=== PATIENT | female | born 1980 | race American Indian/Alaskan Native ===

== ENCOUNTER 2018-05-10 15:41 | Inpatient (IN) | payer SELFPAY ==
--- NOTE | 2018-05-10 16:07 | Emergency Department Report ---
HPI - General Time Seen by Provider: 05/10/18 15:52 - HPI HPI: 37-year-old female presents to the emergency Department via EMS as a code stroke. Apparently the patient was standing in line at a pharmacy when she fell down and allegedly in her head and had some seizure-like activity. This was the reason EMS was called but that EMS says that the patient tensed up in front of them and then started having a facial droop, slurred speech and some left-sided weakness. Patient does have a seizure history but has not been noncompliant with her medications. She does not have any primary care physician or neurologist and she moved here from [place]. I spoke to the patient again after her CT scan of the head was completed and the patient tells me that she has a history of conversion disorder. ED Past Medical Hx - Past Medical History Hx Seizures: Yes (no meds) - Social History Smoking Status: Never Smoker Substance Use Type: None - Medications Home Medications: Home Medications Medication Instructions Recorded Confirmed Last Taken Type No Known Home Medications [No 05/10/18 05/10/18 Unknown History Reported Home Medications] ED Review of Systems ROS: Stated complaint: NEURO ISSUES Other details as noted in HPI Comment: All other systems reviewed and negative Constitutional: denies: chills, fever Eyes: denies: eye pain, vision change ENT: denies: ear pain, throat pain Respiratory: denies: cough, shortness of breath Cardiovascular: denies: chest pain, palpitations Gastrointestinal: denies: abdominal pain, vomiting Genitourinary: denies: dysuria, discharge Musculoskeletal: denies: back pain, arthralgia Skin: denies: rash, lesions Neurological: headache, weakness Physical Exam - Physical Exam Vital Signs: Vital Signs 05/10/18 15:57 Temperature 98.3 F Pulse Rate 88 Respiratory 18 Rate Blood Pressure 113/70 O2 Sat by Pulse 99 Oximetry Physical Exam: GENERAL: The patient is well-developed well-nourished. HEENT: Normocephalic. Atraumatic. Patient has moist mucous membranes. EYES: Extraocular motions are intact. Pupils are equal and reactive to light bilaterally. NECK: Supple. Trachea is midline. CHEST/LUNGS: Clear to auscultation. There is no respiratory distress noted. HEART/CARDIOVASCULAR: Regular. There is no tachycardia. There is no obvious murmur. ABDOMEN: Abdomen is soft, nontender. Patient has normal bowel sounds. There is no abdominal distention. SKIN: Skin is warm and dry. NEURO: The patient is awake, alert. The patient has some facial asymmetry. She has some dysarthria. No sensory deficits. Patient has left-sided upper and lower extremity weakness in her extremities with the gurney. There is a mild right upper extremity and right lower extremity drift. MUSCULOSKELETAL: There is no tenderness or deformity. There is no evidence of acute injury. ED Course Vital Signs 05/10/18 15:57 Temperature 98.3 F Pulse Rate 88 Respiratory 18 Rate Blood Pressure 113/70 O2 Sat by Pulse 99 Oximetry - Reevaluation(s) Reevaluation #1: 05/10/18 19:16 Patient has been reevaluated and most of her strokelike symptoms have resolved. She just complains of a headache. - Consultations Consultation #1: the patient was seen in the emergency department by the telemedicine neurologist, Dr. Smith. Dr. Smith saw the patient via night monitor and did her evaluation of the patient in the room. She agrees that this does not appear obvious or definitive as a stroke. It could be some type of postictal event such as a Mando's paralysis, or it could be the conversion disorder, which the patient says that she has. For these reasons, Dr. Simth does not feel that the patient requires TPA. On top of that, the patient says that she would not accept TPA anyways. 05/10/18 19:11 ED Medical Decision Making - Lab Data Result diagrams: 05/10/18 16:04 05/10/18 16:04 - Radiology Data Radiology results: report reviewed EXAM: CT HEAD WO CONTRAST HISTORY: Code Stroke. TECHNIQUE: CT of the Head without IV contrast. PRIORS: None currently available. FINDINGS: There is no evidence for acute ischemia. There is no hemorrhage. There is no midline shift. There is no hydrocephalus. There is no mass. Age appropriate estevez-white matter attenuation is noted. There is no calvarial fracture. The temporal bones demonstrate aerated mastoid air cells. The middle ears appear unremarkable. Paranasal sinuses are unremarkable. Globes are intact. IMPRESSION: No acute intracranial findings. Transcribed By: TYM Dictated By: ARTHUR SINGER MD Electronically Authenticated By: ARTHUR SINGER MD Signed Date/Time: 05/10/18 1389 - Medical Decision Making Patient presents to the emergency department as a code stroke. On examination she does display some left-sided weakness, dysarthria and facial asymmetry. However the patient does appear to be forcing this facial asymmetry. There are some inconsistencies and occasionally the speech will come clear and then slurred again. Doing the NIH stroke scale, the patient comes out as a 9. However in discussing the stroke workup with the patient, she says that she has a history of conversion disorder and says that this is how it always has been for her. At first she did not want any workup to be done but then she eventually agreed to the CT scan, labs and EKG. CT scan of the head did not show any bleed, shift, mass, ischemia, or any other acute processes. EKG did not show any signs of ST elevation [place] or dysrhythmia. Labs have been unremarkable and do not show any etiology of her symptoms. The patient was seen by the telemedicine neurologist who agrees that the patient did not definitively have a stroke and that it may be the conversion disorder or some type of reaction to seizures. Patient was loaded with some Keppra. She was given some Ativan and Toradol. Neurology recommended admission for further evaluation. She was accepted for admission by the hospitalist service. - Differential Diagnosis CVA, TIA, Seizures, Conversion Disorder Critical Care Time: No Critical care attestation.: If time is entered above; I have spent that time in minutes in the direct care of this critically ill patient, excluding procedure time. ED Disposition Clinical Impression: Stroke-like symptoms, History of seizure disorder Disposition: OP ADMIT IP TO THIS HOSP Is pt being admited?: Yes Condition: Fair Referrals: MARÍA APPIAH DO [Primary Care Provider] - 3-5 Days Time of Disposition: 18:40 - Assessment Assessment Interval: Baseline - Level of Consciousness 1a. Level of Consciousness: alert/keenly responsive - LOC Questions 1b. LOC Questions: answers both correctly - LOC Command 1c. LOC Commands: performs tasks correctly - Best Gaze 2. Best Gaze: normal - Visual 3. Visual: no visual loss - Facial Palsy 4. Facial Palsy: partial paralysis - Motor Arm 5b. Motor Arm Right: drift 5a. Motor Arm Left: some gravity effort - Motor Leg 6b. Motor Leg Right: drift 6a. Motor Leg Left: some gravity effort - Limb Ataxia 7. Limb Ataxia: absent - Sensory 8. Sensory: normal - Best Language 9. Best Language: no aphasia - Dysarthria 10. Dysarthria: mild/moderate dysarthria - Extinction and Inattention 11. Extinction/Inattention: no abnormality - Scoring Total Score: 9 Stroke Severity: Moderate Stroke
[2018-05-10 16:14] LABS: Basophils # (Auto) 0.1 K/mm3 (0.0-0.1); Basophils % (Auto) 1.1 % (0.0-1.8); Eosinophils # (Auto) 0.1 K/mm3 (0.0-0.4); Eosinophils % (Auto) 1.2 % (0.0-4.3); Hematocrit 33.2 % (30.3-42.9); Hemoglobin 10.6 gm/dl (10.1-14.3); Lymphocytes # (Auto) 1.4 K/mm3 (1.2-5.4); Lymphocytes % (Auto) 19.3 % (13.4-35.0); Mean Corpuscular HGB Conc 32 % (30-34); Mean Corpuscular Volume 73 fl (79-97); Monocytes # (Auto) 0.7 K/mm3 (0.0-0.8); Monocytes % (Auto) 9.1 % (0.0-7.3); Platelet Count 290 K/mm3 (140-440); Red Blood Count 4.55 M/mm3 (3.65-5.03); Red Cell Distribution Width 16.9 % (13.2-15.2)
--- NOTE | 2018-05-10 16:18 | Cat Scan Report ---
FINAL REPORT EXAM: CT HEAD WO CONTRAST HISTORY: Code Stroke. TECHNIQUE: CT of the Head without IV contrast. PRIORS: None currently available. FINDINGS: There is no evidence for acute ischemia. There is no hemorrhage. There is no midline shift. There is no hydrocephalus. There is no mass. Age appropriate estevez-white matter attenuation is noted. There is no calvarial fracture. The temporal bones demonstrate aerated mastoid air cells. The middle ears appear unremarkable. Paranasal sinuses are unremarkable. Globes are intact. IMPRESSION: No acute intracranial findings.
[2018-05-10 16:23] LABS: INR 0.91 (0.87-1.13)
[2018-05-10 16:24] LABS: Partial Thromboplastin Time 21.7 Sec. (24.2-36.6)
[2018-05-10 16:30] LABS: BUN/Creatinine Ratio 14; Blood Urea Nitrogen 10 mg/dL (7-17); Calcium 9.2 mg/dL (8.4-10.2); Hemolysis Index 47
[2018-05-10] MEDS ORDERED: ATIVAN IV ONE (17:01)
[2018-05-10] MEDS ORDERED: ATIVAN ONE (17:05)
[2018-05-10] MEDS ORDERED: TORADOL IV ONE ×2 (17:12→22:22)
[2018-05-10] MEDS ORDERED: BENADRYL IV ONE (17:12)
[2018-05-10] MEDS ORDERED: KEPPRA 1,000 MG/NS 0.75% 100ML 1,000 MG/100 ML BAG IV ONE (19:19)
[2018-05-10] MEDS ORDERED: NACL 0.9% 1000 ML 1,000 ML ONE (21:54)
[2018-05-10] MEDS ORDERED: MILK OF MAGNESIA PO PRN (22:36)
[2018-05-10] MEDS ORDERED: SODIUM CHLORIDE FLUSH SYRINGE 10 ML IV PRN (22:36)
[2018-05-10] MEDS ORDERED: TYLENOL PO PRN (22:36)
[2018-05-10] MEDS ORDERED: DULCOLAX PR PRN (22:36)
[2018-05-10] MEDS ORDERED: ZOFRAN IV PRN (22:36)
[2018-05-10] MEDS ORDERED: ATIVAN IV PRN (22:41)
--- NOTE | 2018-05-10 22:56 | History and Physical Report ---
History of Present Illness Date of examination: 05/10/18 Date of admission: 05/10/18 19:00 History of present illness: 37-year-old woman with a history of seizure, conversion disorder, anxiety, migraine, seem emergency room for seizure-like activity. The patient states she was at [facility] picking up her medication, she states he does not recall what happened, she was told she had 2 seizures. She was brought to the emergency room for further evaluation, she was noted to have a facial droop. The patient states she has a migraine that started 3 days ago, diffuse, unable to describe it, the intensity 7/10, not radiation, associated photophobia, relieved with Toradol in the emergency room. When she got to the floor, she is noted to have worsening slurred speech and facial droop, CODE MET was called. Her speech fluctuated between normal and sort of slurred, this was definitely markedly dramatized by the patient, also her facial droop Review of systems Constitutional: no weight loss, chills, fever Ears, eyes, nose, mouth and throat: no nasal congestion, no nasal discharge, no sinus pressure, no vision change, no red eye. Neck: No neck pain or rigidity. Cardiovascular: no palpitations, chest pain Respiratory: no cough, shortness of breath Gastrointestinal: no hematochezia, abdominal pain Genitourinary : no frequency , no hematuria Musculoskeletal: no joint swelling or muscle ache Integumentary: no rash, no pruritis Neurological: no parathesias, no focal weakness Endocrine: no cold or heat intolerance, no polyuria or polydipsia Hematologic/Lymphatic: no easy bruising, no easy bleeding, no gland swelling Allergic/Immunologic: no urticaria, no angioedema. PAST MEDICAL HISTORY: seizure, conversion disorder, anxiety, migraine PAST SURGICAL HISTORY: None SOCIAL HISTORY: Denies alcohol, drugs, tobacco FAMILY HISTORY: Hypertension Medications and Allergies Allergies Allergy/AdvReac Type Severity Reaction Status Date / Time metoclopramide [From Reglan] Allergy Unknown Verified 05/10/18 15:43 Home Medications Medication Instructions Recorded Confirmed Last Taken Type No Known Home Medications [No 05/10/18 05/10/18 Unknown History Reported Home Medications] Active Meds: Active Medications Acetaminophen (Tylenol) 650 mg PO Q4H PRN PRN Reason: Pain, Mild (1-3) Aspirin (Aspirin) 325 mg PO QDAY SIMONA Bisacodyl (Dulcolax) 10 mg SD QDAY PRN PRN Reason: Constipation Sodium Chloride (Nacl 0.9% 1000 Ml) 1,000 mls @ 150 mls/hr IV DIRECT SIMONA Sodium Chloride (Nacl 0.9% 1000 Ml) 1,000 mls @ 150 mls/hr IV DIRECT SIMONA Lorazepam (Ativan) 1 mg IV Q4H PRN PRN Reason: Seizures Magnesium Hydroxide (Milk Of Magnesia) 30 ml PO Q4H PRN PRN Reason: Constipation Ondansetron HCl (Zofran) 4 mg IV Q4H PRN PRN Reason: Nausea And Vomiting Pravastatin Sodium (Pravachol) 20 mg PO QHS SIMONA Sodium Chloride (Sodium Chloride Flush Syringe 10 Ml) 10 ml IV PRN PRN PRN Reason: LINE FLUSH Exam - Physical Exam Narrative exam: General Apperance: The patient lying in bed, breathing comfortable HEENT: Normocephalic, atraumatic. Pupils equally round and reactive to light, EOMI, no sclericterus or JVD or thyromegaly or nodule. , no carotid bruit, mucous membranes moist, no exudate or erythema Heart: S1-S2, regular is rhythm Lungs: Clear to auscultation bilaterally, breathing comfortable Abdomen: Positive bowel sounds, soft, nontender, nondistended, no organomegaly Extremities: No edema cyanosis clubbing Skin: no rash, nodule, warm and dry Neuro: facial droop otherwise cranial nerves intact, slurred speech is fluent, motor/sensory intact - Constitutional Vitals: Temp Pulse Resp BP Pulse Ox 98.3 F 102 H 16 138/89 98 05/10/18 15:57 05/10/18 21:02 05/10/18 21:02 05/10/18 21:02 05/10/18 21:02 Results - Labs CBC & Chem 7: 05/10/18 16:04 05/10/18 16:04 Labs: Abnormal lab results 05/10/18 05/10/18 05/10/18 Range/Units 16:04 16:04 16:04 MCV 73 L (79-97) fl MCH 23 L (28-32) pg RDW 16.9 H (13.2-15.2) % [place] % (Auto) 9.1 H (0.0-7.3) % APTT 21.7 L (24.2-36.6) Sec. Thrombin Time (15.1-19.6) Sec. Sodium 135 L (137-145) mmol/L 05/10/18 Range/Units 16:04 MCV (79-97) fl MCH (28-32) pg RDW (13.2-15.2) % [place] % (Auto) (0.0-7.3) % APTT (24.2-36.6) Sec. Thrombin Time 14.6 L (15.1-19.6) Sec. Sodium (137-145) mmol/L - Imaging and Cardiology CT Scan - head: report reviewed Assessment and Plan Assessment Complicated migraine versus acute on chronic conversion disorder anxiety Plan Admit to medicine Start Toradol for pain, consult neurology, MRI of the head, do neuro checks Start aspirin, statin, DVT prophylaxis
[2018-05-10] MEDS ORDERED: NACL 0.9% 1000 ML 1,000 ML IV SCH ×2 (23:00)
[2018-05-10] MEDS ORDERED: NACL 0.9% 1000 ML IV SCH (23:00)
[2018-05-11] MEDS: TORADOL IV SCH ×4 (01:00→17:45)
[2018-05-11 06:38] LABS: Chol/HDL Ratio 4.02 %
[2018-05-11] MEDS ORDERED: BABY ASPIRIN PO SCH (10:00)
[2018-05-11] MEDS ORDERED: ASPIRIN PO SCH (10:00)
--- NOTE | 2018-05-11 10:49 | Progress Note ---
Assessment and Plan Assessment and plan: Complicated migraine versus acute on chronic conversion disorder Continued Toradol for pain, consult neurology, MRI of the head pending, neuro checks Started aspirin, statin, DVT prophylaxis Anxiety disorder. Consider psych evaluation. History Interval history: No new issues overnight. Hospitalist Physical - Constitutional Vitals: Temp Pulse Resp BP Pulse Ox 98.3 F 74 18 95/50 100 05/11/18 08:00 05/11/18 08:00 05/11/18 08:00 05/11/18 08:00 05/11/18 04:18 General appearance: Present: no acute distress, well-nourished - EENT Eyes: Present: PERRL, EOM intact ENT: hearing intact, clear oral mucosa, dentition normal - Neck Neck: Present: supple, normal ROM - Respiratory Respiratory effort: normal Respiratory: bilateral: CTA - Cardiovascular Rhythm: regular Heart Sounds: Present: S1 & S2. Absent: gallop, rub - Extremities Extremities: no ischemia, No edema, Full ROM - Abdominal General gastrointestinal: soft, non-tender, non-distended, normal bowel sounds - Integumentary Integumentary: Present: clear, warm, dry - Neurologic Neurologic: CNII-XII intact, moves all extremities Results - Labs CBC & Chem 7: 05/10/18 16:04 05/10/18 16:04 Labs: Laboratory Last Values WBC 7.2 K/mm3 (4.5-11.0) 05/10/18 16:04 RBC 4.55 M/mm3 (3.65-5.03) 05/10/18 16:04 Hgb 10.6 gm/dl (10.1-14.3) 05/10/18 16:04 Hct 33.2 % (30.3-42.9) 05/10/18 16:04 MCV 73 fl (79-97) L 05/10/18 16:04 MCH 23 pg (28-32) L 05/10/18 16:04 MCHC 32 % (30-34) 05/10/18 16:04 RDW 16.9 % (13.2-15.2) H 05/10/18 16:04 Plt Count 290 K/mm3 (140-440) 05/10/18 16:04 Lymph % (Auto) 19.3 % (13.4-35.0) 05/10/18 16:04 [place] % (Auto) 9.1 % (0.0-7.3) H 05/10/18 16:04 Eos % (Auto) 1.2 % (0.0-4.3) 05/10/18 16:04 Baso % (Auto) 1.1 % (0.0-1.8) 05/10/18 16:04 Lymph # 1.4 K/mm3 (1.2-5.4) 05/10/18 16:04 [place] # 0.7 K/mm3 (0.0-0.8) 05/10/18 16:04 Eos # 0.1 K/mm3 (0.0-0.4) 05/10/18 16:04 Baso # 0.1 K/mm3 (0.0-0.1) 05/10/18 16:04 Seg Neutrophils % 69.3 % (40.0-70.0) 05/10/18 16:04 Seg Neutrophils # 5.0 K/mm3 (1.8-7.7) 05/10/18 16:04 PT 12.7 Sec. (12.2-14.9) 05/10/18 16:04 INR 0.91 (0.87-1.13) 05/10/18 16:04 APTT 21.7 Sec. (24.2-36.6) L 05/10/18 16:04 Thrombin Time 14.6 Sec. (15.1-19.6) L 05/10/18 16:04 Sodium 135 mmol/L (137-145) L 05/10/18 16:04 Potassium 3.9 mmol/L (3.6-5.0) 05/10/18 16:04 Chloride 101.6 mmol/L (98-107) 05/10/18 16:04 Carbon Dioxide 22 mmol/L (22-30) 05/10/18 16:04 Anion Gap 15 mmol/L 05/10/18 16:04 BUN 10 mg/dL (7-17) 05/10/18 16:04 Creatinine 0.7 mg/dL (0.7-1.2) 05/10/18 16:04 Estimated GFR > 60 ml/min 05/10/18 16:04 BUN/Creatinine Ratio 14 % 05/10/18 16:04 Glucose 86 mg/dL (65-100) 05/10/18 16:04 POC Glucose 90 (70-105) 05/10/18 21:52 Calcium 9.2 mg/dL (8.4-10.2) 05/10/18 16:04 Troponin T < 0.010 ng/mL (0.00-0.029) 05/10/18 16:04 Triglycerides 167 mg/dL (2-149) H 05/11/18 06:03 Cholesterol 141 mg/dL (50-199) 05/11/18 06:03 LDL Cholesterol Direct 98 mg/dL (50-130) 05/11/18 06:03 HDL Cholesterol 35 mg/dL (40-59) L 05/11/18 06:03 Cholesterol/HDL Ratio 4.02 % 05/11/18 06:03
[2018-05-11 12:21] VITALS: BP 89/50
--- NOTE | 2018-05-11 14:55 | Magnetic Resonance Report ---
MRI OF THE BRAIN WITHOUT CONTRAST: HISTORY: Stroke PROCEDURE: Multiplanar, multisequence MR imaging of the brain without IV contrast was performed. FINDINGS: Compared to the CT dated 05/10/18. The brain parenchyma signal intensity and its zamora white interface are within normal limits on all sequences. No evidence for acute ischemia, hemorrhage or mass. No chronic infarct or extra-axial fluid collection. The midline structures are central. The basal cisterns are patent. Normal ventricular size. The orbital cavities and sella turcica demonstrate no abnormality. The visualized paranasal sinuses and mastoid air cells are well aerated. IMPRESSION: Unremarkable non-enhanced MRI of the brain.
--- NOTE | 2018-05-11 18:16 | Progress Note ---
Subjective Date of service: 05/11/18 Interval history: the CT and MRI of the brain are normal suspect seizures a/w anemia suspect BALDEV based on low MCV patient recovered and can be discharged home at this point neuro exam is normal will follow up in the office patient up and ambulating w/o problem Objective - Vital Sign Vital Signs - 12hr 05/11/18 05/11/18 05/11/18 08:00 10:00 12:00 Temperature 98.3 F 98.3 F Pulse Rate 74 72 Respiratory 18 20 Rate Blood Pressure Blood Pressure 95/50 [Left] O2 Sat by Pulse 99 Oximetry 05/11/18 12:17 Temperature Pulse Rate 83 Respiratory Rate Blood Pressure 89/50 Blood Pressure [Left] O2 Sat by Pulse 98 Oximetry - Laboratory Findings CBC and BMP: 05/10/18 16:04 05/10/18 16:04 Abnormal Lab Findings: Abnormal Labs 05/10/18 05/10/18 05/10/18 16:04 16:04 16:04 MCV 73 L MCH 23 L RDW 16.9 H [place] % (Auto) 9.1 H APTT 21.7 L Thrombin Time Sodium 135 L Triglycerides HDL Cholesterol 05/10/18 05/11/18 16:04 06:03 MCV MCH RDW [place] % (Auto) APTT Thrombin Time 14.6 L Sodium Triglycerides 167 H HDL Cholesterol 35 L
[2018-05-11] MEDS ORDERED: PRAVACHOL PO SCH (22:00)
--- NOTE | 2018-05-18 13:56 | Discharge Summary ---
Providers - Providers Date of Admission: 05/10/18 19:00 Date of discharge: 05/11/18 Attending physician: MIREYA ARRIOLA 05/10/18 Consult to Physician [CONS] Routine Comment: Consulting Provider: APRIL YOUNG Physician Instructions: Reason For Exam: facial droop 05/10/18 22:37 Occupational Therapy Evaluate and Treat [CONS] Routine Comment: Reason For Exam: Neuro deficits Physical Therapy Evaluation and Treat [CONS] Routine Comment: Reason For Exam: Neuro deficits Primary care physician: MARÍA APPIAH Hospitalization Reason for admission: sz Condition: Fair Hospital course: 37-year-old woman with a history of seizure, conversion disorder, anxiety and migraine was seen in emergency room for seizure-like activity. The patient stated she was at [facility] picking up her medication, when she had 2 seizures. The patient does not remember the events as they transpired. She was brought to the emergency room for further evaluation, she was noted to have a facial droop. The patient stated she has a migraine that started 3 days ago CARD LACER JACQUARD that was diffuse and 7/10 intensity, non radiating, associated photophobia, relieved with Toradol in the emergency room. When she got to the floor, she was noted to have worsening slurred speech and facial droop, CODE MET was called. Her speech fluctuated between normal and sort of slurred, this was definitely markedly dramatized by the patient, also her facial droop. The CT and MRI of the brain were normal. Neurology saw the patient in consultation of suspected seizures associated with anemia. The patient recovered and neurology felt patient could discharge home. Dedicated discharge time 32 minutes. Disposition: DC- TO HOME OR SELFCARE Time spent for discharge: 32 - Discharge Diagnoses (1) Seizure Status: Acute (2) History of seizure disorder Status: Acute Core Measure Documentation - Palliative Care Palliative Care/ Comfort Measures: Not Applicable - Core Measures Any of the following diagnoses?: none Exam - Constitutional Vitals: Temp Pulse Resp BP Pulse Ox 98.3 F 83 20 89/50 98 05/11/18 12:00 05/11/18 12:17 05/11/18 10:00 05/11/18 12:17 05/11/18 12:17 General appearance: Present: no acute distress, well-nourished - EENT Eyes: Present: PERRL ENT: hearing intact, clear oral mucosa - Neck Neck: Present: supple, normal ROM - Respiratory Respiratory effort: normal Respiratory: bilateral: CTA - Cardiovascular Heart Sounds: Present: S1 & S2. Absent: rub, click - Extremities Extremities: pulses symmetrical, No edema Peripheral Pulses: within normal limits - Abdominal General gastrointestinal: Present: soft, non-tender, non-distended, normal bowel sounds Female genitourinary: Present: normal - Integumentary Integumentary: Present: clear, warm, dry - Musculoskeletal Musculoskeletal: gait normal, strength equal bilaterally - Psychiatric Psychiatric: appropriate mood/affect, intact judgment & insight - Neurologic Neurologic: CNII-XII intact, moves all extremities Plan Activity: advance as tolerated Weight Bearing Status: Weight Bear as Tolerated Diet: regular Follow up with: MARÍA APPIAH DO [Primary Care Provider] - 3-5 Days Forms: AMA Form
== END 2018-05-11 20:00 | disposition home or self-care (01) | DRG 101 ==
LOC: ED 15:41 → 4A 19:00
PROVIDERS: ADMIT Internal Medicine; ATTEND Hospitalist
DX: G40.909 Epilepsy, unspecified, not intractable, without status epilepticus (principal); F41.9 Anxiety disorder, unspecified; G43.909 Migraine, unspecified, not intractable, without status migrainosus; F44.4 Conversion disorder with motor symptom or deficit; R47.81 Slurred speech; Z82.49 Family history of ischemic heart disease and other diseases of the circulatory system
CPT/HCPCS: 36415; 70450; 70551; 80048; 80061; 82962; 84484; 85025; 85610; 85670; 85730; 93005; 93010; 96365; 96375; G0378; J1200; J1885; J1953; J2060; J7030

== ENCOUNTER 2018-09-14 12:28 | Emergency (ER) | payer SELFPAY ==
[2018-09-14] MEDS ORDERED: NACL 0.9% 1000 ML 1,000 ML IV ONE (13:01)
[2018-09-14] MEDS ORDERED: DECADRON IV ONE (13:01)
[2018-09-14] MEDS ORDERED: BENADRYL IV ONE (13:01)
[2018-09-14] MEDS ORDERED: TORADOL IV ONE (13:01)
[2018-09-14 13:06] LABS: Hemoglobin 11.6 gm/dl (10.1-14.3); Mean Corpuscular HGB Conc 33 % (30-34); Mean Corpuscular Volume 79 fl (79-97); Platelet Count 238 K/mm3 (140-440); Red Blood Count 4.45 M/mm3 (3.65-5.03)
[2018-09-14 13:13] LABS: Red Cell Distribution Width 22.2 % (13.2-15.2)
[2018-09-14 13:26] LABS: BUN/Creatinine Ratio 11; Blood Urea Nitrogen 10 mg/dL (7-17); Calcium 8.8 mg/dL (8.4-10.2); Hemolysis Index 37
[2018-09-14] MEDS ORDERED: COMPAZINE IV ONE (14:01)
--- NOTE | 2018-09-14 15:20 | Emergency Department Report ---
ED Seizure HPI - General Chief Complaint: Seizure Stated Complaint: SEIZURE/FACIAL DROOP Time Seen by Provider: 09/14/18 13:01 Source: patient, EMS Mode of arrival: Stretcher Limitations: No Limitations - History of Present Illness Initial Comments: 37-year-old female with history of nonepileptic seizures, complex migraines presents to the ED following a seizure at a pharmacy. Patient had a compulsive seizure there, EMS was called. EMS reports patient for absence seizures while with them. Patient has history of complex migraines are usually triggered by menstruation. The migraines been treated for her to have seizures. Patient initially had a headache with facial droop, facial droop now resolved. Patient states her menstrual period began yesterday, so that the headache. Patient states she sees a neurologist, reports a cocktail consisting of Toradol, Benadryl, Compazine, Decadron normally works for her migraine headaches MD Complaint: seizure -: This afternoon Description of Episode: tonic-clonic movement, post-event confusion Witnessed:: Yes Trauma: No Seizure History: known seizure disorder Possible Precipitating Event: other (migraine HARVEY) Associated Symptoms: denies: chest pain, fever/chills, shortness of breath Treatments Prior to Arrival: none - Related Data Allergies Allergy/AdvReac Type Severity Reaction Status Date / Time metoclopramide [From Reglan] Allergy Unknown Verified 09/14/18 12:37 ED Review of Systems ROS: Stated complaint: SEIZURE/FACIAL DROOP Other details as noted in HPI Comment: All other systems reviewed and negative Constitutional: denies: chills, fever Respiratory: denies: shortness of breath Cardiovascular: denies: chest pain Neurological: headache ED Past Medical Hx - Past Medical History Previous Medical History?: Yes Hx Headaches / Migraines: Yes (complex migraines w/ hemiplegic symptoms) Hx Seizures: Yes (partial and tonic/clonic sz w/ hemiplegia) - Surgical History Past Surgical History?: No - Social History Smoking Status: Never Smoker Substance Use Type: None ED Physical Exam - General Limitations: No Limitations General appearance: alert, in no apparent distress - Head Head exam: Present: atraumatic, normocephalic - Eye Eye exam: Present: normal appearance, PERRL, EOMI - ENT ENT exam: Present: mucous membranes moist - Neck Neck exam: Present: normal inspection, full ROM. Absent: tenderness, meningismus - Respiratory Respiratory exam: Present: normal lung sounds bilaterally. Absent: respiratory distress - Cardiovascular Cardiovascular Exam: Present: regular rate, normal rhythm - GI/Abdominal GI/Abdominal exam: Present: soft. Absent: distended, tenderness - Extremities Exam Extremities exam: Present: normal inspection - Neurological Exam Neurological exam: Present: alert, oriented X3, CN II-XII intact. Absent: motor sensory deficit - Psychiatric Psychiatric exam: Present: normal affect, normal mood - Skin Skin exam: Present: warm, dry, intact, normal color ED Course Vital Signs 09/14/18 09/14/18 09/14/18 12:43 12:45 12:46 Temperature 98.8 F Pulse Rate 86 84 87 Respiratory 13 23 13 Rate Blood Pressure 115/75 Blood Pressure 116/79 [Left] O2 Sat by Pulse 100 99 Oximetry 09/14/18 09/14/18 09/14/18 13:00 13:16 13:31 Temperature Pulse Rate 80 84 Respiratory 20 21 Rate Blood Pressure 116/69 116/69 116/69 Blood Pressure [Left] O2 Sat by Pulse 100 Oximetry 09/14/18 09/14/18 09/14/18 13:45 14:00 14:14 Temperature Pulse Rate 86 99 H Respiratory 19 20 20 Rate Blood Pressure 116/69 139/90 Blood Pressure [Left] O2 Sat by Pulse 100 Oximetry 09/14/18 09/14/18 09/14/18 14:15 14:30 14:45 Temperature Pulse Rate 91 H 87 86 Respiratory 19 16 16 Rate Blood Pressure 134/82 126/82 129/80 Blood Pressure [Left] O2 Sat by Pulse 100 100 Oximetry 09/14/18 09/14/18 09/14/18 15:00 15:15 15:47 Temperature Pulse Rate 85 87 Respiratory 16 15 20 Rate Blood Pressure 118/77 118/79 Blood Pressure [Left] O2 Sat by Pulse 100 99 Oximetry 09/14/18 15:52 Temperature 98.4 F Pulse Rate Respiratory Rate Blood Pressure Blood Pressure [Left] O2 Sat by Pulse Oximetry ED Medical Decision Making - Lab Data Result diagrams: 09/14/18 12:55 09/14/18 12:55 - Medical Decision Making - hx of chronic complex migraines and seizures - no neuro deficits during ED stay - labs normal - pt given IV fluids, toradol, decadron, compazine, and benadryl - HARVEY improved - pt advised to f/u with her neurologist - Differential Diagnosis complex migraine, seizures Critical care attestation.: If time is entered above; I have spent that time in minutes in the direct care of this critically ill patient, excluding procedure time. ED Disposition Clinical Impression: Seizure, Migraine headache Disposition: TO HOME OR SELFCARE Is pt being admited?: No Condition: Stable Instructions: Migraine Headache (ED), Recurrent Seizures Adult (ED) Referrals: PRIMARY CARE, [Primary Care Provider] - 3-5 Days Time of Disposition: 15:20
[2018-09-14 15:30] VITALS: BP 118/79
== END 2018-09-14 16:00 | disposition home or self-care (01) ==
LOC: ED 12:28 → MERGE 12:28 → ED 16:00
DX: R56.9 Unspecified convulsions (principal); G43.909 Migraine, unspecified, not intractable, without status migrainosus; Z88.8 Allergy status to other drugs, medicaments and biological substances
CPT/HCPCS: 36415; 80048; 82962; 85027; 96374; 96375; 99284; J0780; J1100; J1200; J1885; J7030

== ENCOUNTER 2018-09-18 11:52 | Emergency (ER) | payer SELFPAY ==
[2018-09-18] MEDS ORDERED: IMITREX SUB-Q ONE (12:48)
[2018-09-18] MEDS ORDERED: NACL 0.9% 500 ML 500 ML IV ONE (12:48)
[2018-09-18] MEDS ORDERED: ZOFRAN IV ONE (12:48)
[2018-09-18] MEDS ORDERED: BENADRYL IV ONE (12:48)
[2018-09-18] MEDS ORDERED: DECADRON IV ONE (12:48)
[2018-09-18] MEDS ORDERED: MORPHINE IV ONE (12:48)
--- NOTE | 2018-09-18 13:06 | Emergency Department Report ---
ED Headache HPI - General Chief Complaint: Seizure Stated Complaint: SEIZURES Time Seen by Provider: 09/18/18 12:45 Source: patient Exam Limitations: no limitations - History of Present Illness Initial Comments: Ms. Finnegan is a 37 yo female with hx of hemiplegic migraine, anxiety, seizure, conversion disorder who presents with 5 seizure like episodes. EMS was contacted. She was at the [facility] today for evaluation for anxiety. She has had recurrent migraine headache for the past several months. She is followed by neurologist in [place]. She feels that this headache has been exacerbated by menstrual cycle. Her main concern is headache at this time. She is currently taking Keppra, Imitrex, Buspar, Lorazepam. Recently admitted earlier this year for evaluation of seizure and facial droop. Quality: mild Recent Head Trauma: frequent headaches, chronic headaches Modifying Factors: improves with: exposure to light, other (menstruation) Associated Symptoms: seizures Allergies/Adverse Reactions: Allergies metoclopramide [From Reglan] Allergy (Verified 05/10/18 15:43) Unknown Home Medications: Ambulatory Orders No Known Home Medications [No Reported Home Medications] 05/10/18 ED Review of Systems ROS: Stated complaint: SEIZURES Other details as noted in HPI Comment: All other systems reviewed and negative Constitutional: denies: fever, malaise Respiratory: denies: cough Cardiovascular: denies: chest pain Neurological: headache ED Past Medical Hx - Past Medical History Previous Medical History?: Yes Hx Headaches / Migraines: Yes Hx Seizures: Yes (started new medication) - Social History Smoking Status: Never Smoker Substance Use Type: None - Medications Home Medications: Home Medications Medication Instructions Recorded Confirmed Last Taken Type No Known Home Medications [No 05/10/18 05/10/18 Unknown History Reported Home Medications] ED Physical Exam - General Limitations: Other General appearance: alert, in no apparent distress - Head Head exam: Present: atraumatic, normocephalic - Eye Eye exam: Present: normal appearance - ENT ENT exam: Present: mucous membranes moist - Neck Neck exam: Present: normal inspection, full ROM - Respiratory Respiratory exam: Present: normal lung sounds bilaterally. Absent: respiratory distress, wheezes, rales, rhonchi - Cardiovascular Cardiovascular Exam: Present: regular rate, normal rhythm, normal heart sounds. Absent: systolic murmur, diastolic murmur, rubs, gallop - GI/Abdominal GI/Abdominal exam: Present: soft, normal bowel sounds. Absent: distended, tenderness, guarding, rebound - Extremities Exam Extremities exam: Present: normal inspection - Back Exam Back exam: Present: normal inspection - Neurological Exam Neurological exam: Present: alert, oriented X3 - Psychiatric Psychiatric exam: Present: normal affect, normal mood - Skin Skin exam: Present: warm, dry, intact, normal color. Absent: rash ED Course Vital Signs 09/18/18 09/18/18 09/18/18 12:09 13:30 14:39 Temperature 98.5 F Pulse Rate 100 H 94 H Respiratory 18 21 Rate Blood Pressure 127/88 124/74 Blood Pressure 116/81 [Left] O2 Sat by Pulse 100 100 Oximetry ED Medical Decision Making - Medical Decision Making Migraine headache, seizure, numbness. Ms. Finnegan presents with typical migraine headache. She has a history of 20+ years of headache. Known history of seizure disorder. Followed by her neurologist in [place]. She received IV medication for analgesia. She also received IV fluids. Just after discharge, Ms. Finnegan exhibited seizure activity. Nurse administered ativan. No postictal phase. Patient immediately called her neurologist after the incident. I suspect nonepileptic seizure. Dc'd home Critical care attestation.: If time is entered above; I have spent that time in minutes in the direct care of this critically ill patient, excluding procedure time. ED Disposition Clinical Impression: Seizure, Migraine Disposition: DC-01 TO HOME OR SELFCARE Is pt being admited?: No Does the pt Need Aspirin: No Condition: Stable Instructions: Migraine Headache (ED), Epilepsy (ED)
[2018-09-18] MEDS ORDERED: ATIVAN IV ONE (14:40)
[2018-09-18] MEDS ORDERED: ATIVAN ONE (14:40)
[2018-09-18 17:47] VITALS: BP 125/87
== END 2018-09-18 17:51 | disposition home or self-care (01) ==
LOC: ED 11:52
DX: G40.909 Epilepsy, unspecified, not intractable, without status epilepticus (principal); G43.909 Migraine, unspecified, not intractable, without status migrainosus; Z88.8 Allergy status to other drugs, medicaments and biological substances
CPT/HCPCS: 93005; 93010; 96372; 96374; 96375; 99284; J1100; J1200; J2060; J2270; J2405; J7040; J3030

== ENCOUNTER 2019-05-30 13:02 | Emergency (ER) | payer SELFPAY ==
[2019-05-30] MEDS ORDERED: ACETAMINOPHEN 500 MG TAB PO ONE (14:12)
--- NOTE | 2019-05-30 14:20 | Emergency Department Report ---
ED Seizure HPI - General Chief Complaint: Seizure Stated Complaint: CONVULSIONS Time Seen by Provider: 05/30/19 14:02 Source: EMS Mode of arrival: Stretcher Limitations: No Limitations - History of Present Illness Initial Comments: Patient 38 years old female with history of an anxiety attack and possible nonepileptic seizure. Patient brought to the emergency room from her primary care physician office. Patient stated that she ran out of her BuSpar and Paxil and she went for a refill. Patient stated that while she was in the office she started having seizures. Patient stated that she got Ativan nasal spray and it helped abort the seizure. Patient was seen here 3 times before for the same thing. Patient also stated that she had migraine and now she is having an episode of migraine. MD Complaint: possible seizure Witnessed:: Yes Seizure History: known seizure disorder - Related Data Home Medications Medication Instructions Recorded Confirmed Last Taken No Known Home Medications [No 05/10/18 05/10/18 Unknown Reported Home Medications] Allergies Allergy/AdvReac Type Severity Reaction Status Date / Time metoclopramide [From Reglan] Allergy Unknown Verified 10/26/18 08:17 ED Review of Systems ROS: Stated complaint: CONVULSIONS Other details as noted in HPI Comment: All other systems reviewed and negative Constitutional: denies: chills, fever Respiratory: denies: cough, shortness of breath, SOB with exertion Cardiovascular: denies: chest pain, palpitations Gastrointestinal: denies: abdominal pain, nausea, vomiting Neurological: headache. denies: weakness, numbness, paresthesias, confusion, abnormal gait ED Past Medical Hx - Past Medical History Previous Medical History?: Yes Hx Headaches / Migraines: Yes Hx Seizures: Yes (started new medication) - Surgical History Past Surgical History?: No - Social History Smoking Status: Never Smoker Substance Use Type: None - Medications Home Medications: Home Medications Medication Instructions Recorded Confirmed Last Taken Type No Known Home Medications [No 05/10/18 05/10/18 Unknown History Reported Home Medications] ED Physical Exam - General Limitations: No Limitations General appearance: alert, in no apparent distress - Head Head exam: Present: atraumatic, normocephalic, normal inspection - Eye Eye exam: Present: normal appearance, PERRL - ENT ENT exam: Present: normal exam, normal orophraynx, mucous membranes moist - Neck Neck exam: Present: normal inspection, full ROM. Absent: tenderness, meni ngismus, lymphadenopathy, thyromegaly - Respiratory Respiratory exam: Present: normal lung sounds bilaterally - Cardiovascular Cardiovascular Exam: Present: regular rate, normal rhythm, normal heart sounds - GI/Abdominal GI/Abdominal exam: Present: soft, normal bowel sounds. Absent: distended, tenderness, guarding, rebound, rigid, organomegaly, mass, bruit, pulsatile mass, hernia - Extremities Exam Extremities exam: Present: normal inspection, full ROM, normal capillary refill. Absent: pedal edema, calf tenderness - Back Exam Back exam: Present: normal inspection, full ROM. Absent: CVA tenderness (R), CVA tenderness (L) - Neurological Exam Neurological exam: Present: alert, oriented X3, CN II-XII intact, normal gait, reflexes normal - Psychiatric Psychiatric exam: Present: normal mood - Skin Skin exam: Present: warm, intact, normal color ED Course Vital Signs 05/30/19 13:24 Temperature 98.7 F Pulse Rate 76 Respiratory 22 Rate Blood Pressure 108/71 O2 Sat by Pulse 100 Oximetry ED Medical Decision Making - Lab Data Result diagrams: 05/30/19 14:21 05/30/19 14:21 - Medical Decision Making Patient 38 years old female with history of an anxiety attack and possible nonepileptic seizure. Patient brought to the emergency room from her primary care physician office. Patient stated that she ran out of her BuSpar and Paxil and she went for a refill. Patient stated that while she was in the office she started having seizures. Patient stated that she got Ativan nasal spray and it helped abort the seizure. Patient was seen here 3 times before for the same thing. Patient also stated that she had migraine and now she is having an episode of migraine. No seizure observed in the ER. Patient received a cocktail of Decadron, Toradol, Benadryl and Phenergan and help a lot with her headache. Patient advis ed to follow-up with her primary care physician and neurologist in the next 2 to 3 days and to return to the ER if she develop any new symptoms. Critical care attestation.: If time is entered above; I have spent that time in minutes in the direct care of this critically ill patient, excluding procedure time. ED Disposition Clinical Impression: Seizure, Migraine Disposition: - TO HOME OR SELFCARE Is pt being admited?: No Condition: Stable Instructions: Recurrent Seizures Adult (ED), Migraine Headache (ED) Referrals: PRIMARY CARE,MD [Primary Care Provider] - 3-5 Days
[2019-05-30 14:44] LABS: Hematocrit 32.6 % (30.3-42.9); Hemoglobin 10.5 gm/dl (10.1-14.3); Mean Corpuscular HGB Conc 32 % (30-34); Mean Corpuscular Volume 78 fl (79-97); Platelet Count 313 K/mm3 (140-440); Red Blood Count 4.21 M/mm3 (3.65-5.03); Red Cell Distribution Width 15.8 % (13.2-15.2)
[2019-05-30] MEDS ORDERED: diphenhydrAMINE 50 MG/ML VIAL IV ONE (14:58)
[2019-05-30] MEDS ORDERED: dexAMETHasone 4 MG/ML VIAL IV ONE (14:58)
[2019-05-30] MEDS ORDERED: PROMETHAZINE 25 MG TAB PO ONE (14:59)
[2019-05-30] MEDS ORDERED: KETOROLAC 30 MG/1 ML INJ IV ONE (15:00)
[2019-05-30 15:06] LABS: Alanine Aminotransferase 25 units/L (7-56); Albumin 4.1 g/dL (3.9-5); BUN/Creatinine Ratio 15; Blood Urea Nitrogen 12 mg/dL (7-17); Calcium 9.6 mg/dL (8.4-10.2); Hemolysis Index 8
[2019-05-30 15:08] LABS: Bilirubin,Direct < 0.2 mg/dL (0-0.2)
[2019-05-30 15:36] LABS: Basophils % (Manual) 0 % (0.0-1.8); Total Cells Counted 100
[2019-05-30 15:37] LABS: Macrocytosis Few; Stomatocytes Few
[2019-05-30 15:38] LABS: Large Platelets Few; Ovalocytes Few; Platelet Estimate Consistent w Auto
[2019-05-30 16:44] VITALS: BP 100/62
== END 2019-05-30 16:43 | disposition home or self-care (01) ==
LOC: ED 13:02
DX: R56.9 Unspecified convulsions (principal); G43.909 Migraine, unspecified, not intractable, without status migrainosus; F41.9 Anxiety disorder, unspecified
CPT/HCPCS: 36415; 80048; 80076; 84703; 85007; 85025; 96374; 96375; 99284; J1100; J1200; J1885; Q0169

== ENCOUNTER 2019-12-12 08:56 | Emergency (ER) | payer SELFPAY ==
[2019-12-12] MEDS ORDERED: levETIRAcetam 1000 MG/NS 0.75% 1,000 MG/100 ML BAG IV ONE (09:34)
[2019-12-12] MEDS ORDERED: BUTALB/ACETAMINOPHEN/CAFFEINE TAB PO ONE (09:34)
[2019-12-12] MEDS ORDERED: SODIUM CHLORIDE 0.9% 500 ML 500 ML IV ONE (09:34)
[2019-12-12] MEDS ORDERED: lamoTRIgine 100 MG TAB PO ONE (09:36)
--- NOTE | 2019-12-12 10:01 | Emergency Department Report ---
HPI - General Chief Complaint: Seizure Time Seen by Provider: 12/12/19 09:10 - HPI HPI: This is a 39-year-old -[place] female who presents to the emergency department via EMS from [place] with complaint of a headache and seizure. Patient had witnessed seizure-like activity that lasted for about 2 to 3 minutes followed by a postictal state. At the time of my examination the patient is awake, alert, oriented. She has a left-sided throbbing headache that precipitated the seizure-like activity. Patient says that she does have a history of migraines, trigeminal neuralgia, occipital neuralgia, and nonepileptic seizures. She is currently at [place] for some anxiety and depression but is voluntary there. The patient says that she is on Lamictal, Zonisamide, but missed a few doses since going to [place] yesterday. Patient currently has a sensitivity to light, but denies any vision change, slurred speech, numbness or paresthesias, or any other neurological deficits. She follows with a neurologist in [place], Dr. Simon. ED Past Medical Hx - Past Medical History Previous Medical History?: Yes Hx Headaches / Migraines: Yes Hx Seizures: Yes (started new medication) Hx Psychiatric Treatment: Yes (Anxiety) Additional medical history: Anemia, Fibroids, Endometriosis - Surgical History Past Surgical History?: No - Social History Smoking Status: Never Smoker Substance Use Type: None - Medications Home Medications: Home Medications Medication Instructions Recorded Confirmed Last Taken Type PARoxetine [Paxil] 10 mg PO QHS 12/12/19 12/12/19 12/10/19 History Rizatriptan Benzoate [Rizatriptan] 10 mg PO TID PRN 12/12/19 12/12/19 12/11/19 History Zonisamide 400 mg PO QHS 12/12/19 12/12/19 12/10/19 History busPIRone [Buspar] 10 mg PO TID 12/12/19 12/12/19 12/11/19 History lamoTRIgine [Lamictal] 100 mg PO BID 12/12/19 12/12/19 12/11/19 History traZODone [Desyrel] 50 mg PO QHS 12/12/19 12/12/19 12/11/19 History ED Review of Systems ROS: Stated complaint: SEIZURE Other details as noted in HPI Comment: All other systems reviewed and negative Constitutional: denies: chills, fever Eyes: denies: eye pain, vision change ENT: denies: ear pain, throat pain Respiratory: denies: cough, shortness of breath Cardiovascular: denies: chest pain, palpitations Gastrointestinal: denies: abdominal pain, vomiting Genitourinary: denies: dysuria, discharge Musculoskeletal: denies: back pain, arthralgia Skin: denies: rash, lesions Neurological: headache, other (seizure) Physical Exam - Physical Exam Vital Signs: Vital Signs 12/12/19 09:28 Temperature 98.7 F Pulse Rate 85 Respiratory 16 Rate Blood Pressure 103/63 [Left] O2 Sat by Pulse 100 Oximetry Physical Exam: GENERAL: The patient is well-developed well-nourished. HENT: Normocephalic. Atraumatic. Patient has moist mucous membranes. EYES: Extraocular motions are intact. Pupils equal reactive to light b ilaterally. No nystagmus. NECK: Supple. Trachea is midline. CHEST/LUNGS: Clear to auscultation. There is no respiratory distress noted. HEART/CARDIOVASCULAR: Regular. There is no tachycardia. There is no murmur. ABDOMEN: Abdomen is soft, nontender. Patient has normal bowel sounds. SKIN: Skin is warm and dry. NEURO: The patient is awake, alert, and oriented. The patient is cooperative. The patient has no focal neurologic deficits. Normal speech. Cranial nerves II to XII grossly intact. No pronator drift. No facial asymmetry. MUSCULOSKELETAL: There is no tenderness or deformity. There is no limitation range of motion. ED Course Vital Signs 12/12/19 09:28 Temperature 98.7 F Pulse Rate 85 Respiratory 16 Rate Blood Pressure 103/63 [Left] O2 Sat by Pulse 100 Oximetry ED Medical Decision Making - Lab Data Result diagrams: 12/12/19 09:40 12/12/19 09:40 - EKG Data -: EKG Interpreted by Me EKG shows normal: sinus rhythm, axis, intervals, QRS complexes, ST-T waves Rate: normal - EKG Data When compared to previous EKG there are: previous EKG unavailable Interpretation: normal EKG - Medical Decision Making This patient presented to the emergency department with a complaint of left- sided throbbing headache that she says is similar to previous migraines. She also presents after having some seizure-like activity at the psychiatric facility. Upon arrival to the emergency department the patient is awake, alert, oriented. She does not have any focal, motor or sensory deficits and her cranial nerves are intact. An EKG was done that is normal without ST elevation GA, ischemia or dysrhythmia. Patient's labs have been unremarkable including CBC, metabolic panel, blood alcohol level, TSH, and urine drug screen is only positive for marijuana. The patient has not been able to have her migraine and antiepileptic medications over the past 1 to 2 days since starting voluntarily at the psychiatric facility. She has been in the emergency department for more than 3-1/2 hours and there has been no further seizure-like activity. She was reevaluated multiple times and has been seen sleeping and/or resting comfortably with obvious improvement in her migraine headache. Since there has been improvement in the headache, and no further seizure-like activity, and since the headache is like her previous migraines, I did not feel that CT imaging of the head was necessary at this time. Her vital signs have been reassuring throughout her ED course. She will be discharged back to the psychiatric facility and instructed to follow-up with her primary care physician and neurologist. She is also been instructed to return to the emergency department with any worsening of her symptoms or with any acute distress. Critical Care Time: No Critical care attestation.: If time is entered above; I have spent that time in minutes in the direct care of this critically ill patient, excluding procedure time. ED Disposition Clinical Impression: Seizure Migraine headache Qualifiers: Migraine type: unspecified Status migrainosus presence: without status migrainosus Intractability: not intractable Qualified Code(s): G43.909 - Migraine, unspecified, not intractable, without status migrainosus Disposition: DC-01 TO HOME OR SELFCARE Is pt being admited?: No Condition: Stable Instructions: Non-epileptic Seizures (ED), Acute Headache (ED) Additional Instructions: Please follow-up with your primary care physician and neurologist as soon as you are able to do so. Please try and restart your migraine and seizure m edications while you are at [place]. Return to the emergency department with any further seizure-like activity, worsening of your symptoms, or with any acute distress. Referrals: CIRO SEVILLA [Other] - 2-3 Days MISHU,HUSHAM, MD [Referring] - 2-3 Days Time of Disposition: 12:26
[2019-12-12 10:53] LABS: Alanine Aminotransferase 13 units/L (7-56); Albumin 4.2 g/dL (3.9-5); BUN/Creatinine Ratio 18; Basophils # (Auto) 0.1 K/mm3 (0.0-0.1); Basophils % (Auto) 0.8 % (0.0-1.8); Blood Urea Nitrogen 16 mg/dL (7-17); Calcium 9.2 mg/dL (8.4-10.2); Eosinophils # (Auto) 0.1 K/mm3 (0.0-0.4); Eosinophils % (Auto) 1.1 % (0.0-4.3); Hematocrit 28.7 % (30.3-42.9); Hemolysis Index 1; Lymphocytes # (Auto) 1.5 K/mm3 (1.2-5.4); Lymphocytes % (Auto) 22.7 % (13.4-35.0); Mean Corpuscular HGB Conc 31 % (30-34); Monocytes # (Auto) 0.6 K/mm3 (0.0-0.8); Monocytes % (Auto) 8.9 % (0.0-7.3); Platelet Count 378 K/mm3 (140-440); Red Blood Count 4.35 M/mm3 (3.65-5.03)
[2019-12-12 10:54] LABS: Mean Corpuscular Volume 66 fl (79-97); Red Cell Distribution Width 20.2 % (13.2-15.2)
[2019-12-12 11:20] LABS: Bilirubin,Urine NEG (Negative); Blood,Urine NEG (Negative); Color,Urine Yellow (Yellow); Mucus,Urine 1+ /HPF; Protein,Urine <15 mg/dL mg/dL (Negative); Urobilinogen,Urine < 2.0 mg/dL (<2.0); WBC,Urine < 1.0 /HPF (0.0-6.0)
[2019-12-12 11:28] LABS: Amphetamine Screen,Urine Negative; Benzodiazepines Screen,Urine Negative; Cocaine Screen,Urine Negative; Methadone Screen,Urine Negative; Opiate Screen,Urine Negative
[2019-12-12 11:52] LABS: Cannabinoid Screen,Urine Positive
[2019-12-12 16:06] VITALS: BP 107/66
== END 2019-12-12 16:27 | disposition home or self-care (01) ==
LOC: ED 08:56
DX: G40.909 Epilepsy, unspecified, not intractable, without status epilepticus (principal); G43.909 Migraine, unspecified, not intractable, without status migrainosus; F41.9 Anxiety disorder, unspecified; Z79.899 Other long term (current) drug therapy
CPT/HCPCS: 36415; 80053; 80307; 81001; 82550; 84443; 84703; 85025; 93005; 99284; J1953; J7040